=== PATIENT | male | born 1985 | race Caucasian/White ===

== ENCOUNTER 2021-01-01 20:45 | Emergency (ER) | payer SELFPAY ==
[~2021-01-01] VITALS: Ht 165.1 cm; Wt 63.6 kg
[~2021-01-01 20:45] MED LIST: NAPR-243 PO; TRM50T PO; VENL150C PO
[2021-01-01 20:50] VITALS: BP 148/89
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
== END 2021-01-01 21:10 | disposition left against medical advice (07) ==
LOC: EDUNIT# 20:45 → ER 20:47
DX: S00.83XA Contusion of other part of head, initial encounter (principal); S00.432A Contusion of left ear, initial encounter; Y04.0XXA Assault by unarmed brawl or fight, initial encounter
CPT/HCPCS: 99283

== ENCOUNTER 2021-07-12 01:27 | Emergency (ER) | payer SELFPAY ==
[~2021-07-12] VITALS: Ht 165 cm; Wt 63.6 kg
[2021-07-12] MEDS ORDERED: TETANUS,DIPTH,PERTUSS P/F (BOOSTRIX) 0.5 ML VIAL IM ONE (01:45)
[2021-07-12] MEDS ORDERED: ORPHENADRINE 60 MG/2 ML (NORFLEX) AMP (ED ONLY) IM ONE (01:45)
[2021-07-12] MEDS ORDERED: KETOROLAC 60 MG/2 ML VIAL IM ONE (01:45)
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
[2021-07-12] MEDS ORDERED: ONDANSETRON 4 MG (ZOFRAN) ORAL DISSOLVE TAB PO STA (01:55)
[2021-07-12] MEDS ORDERED: ONDANSETRON 4 MG (ZOFRAN) ORAL DISSOLVE TAB ONE (01:56)
[2021-07-12] MEDS ORDERED: HYDROcodone/APAP 7.5 MG/325 MG (LORTAB, LORCET PLUS) TABLET PO ONE (03:00)
[2021-07-12] MEDS ORDERED: CEPHALEXIN 250 MG (KEFLEX) CAP PO ONE (03:00)
[2021-07-12] MEDS ORDERED: CYCL10TA9 PO (03:06)
[2021-07-12] MEDS ORDERED: HYDR-3817 PO (03:06)
[2021-07-12] MEDS ORDERED: CEPH500T PO (03:06)
[2021-07-12 03:12] VITALS: BP 144/92
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
== END 2021-07-12 03:12 | disposition home or self-care (01) ==
LOC: EDUNIT# 01:27 → ER 01:29
DX: S02.32XA Fracture of orbital floor, left side, initial encounter for closed fracture (principal); S02.2XXA Fracture of nasal bones, initial encounter for closed fracture; S02.40EA Zygomatic fracture, right side, initial encounter for closed fracture; S05.11XA Contusion of eyeball and orbital tissues, right eye, initial encounter; H11.422 Conjunctival edema, left eye; R40.2410 Glasgow coma scale score 13-15, unspecified time; Z23 Encounter for immunization; Y04.8XXA Assault by other bodily force, initial encounter
CPT/HCPCS: 70450; 70486; 72125; 90715

== ENCOUNTER 2022-05-18 05:32 | Outpatient (CLI) | payer OTHER ==
[~2022-05-18] VITALS: Ht 180.3 cm; Wt 74.5 kg
[~2022-05-18 05:32] MED LIST changes: +CEPH500T PO; +CYCL10TA25 PO; +HYDR-3817 PO
[2022-05-22] MEDS ORDERED: ACET325C7 PO (09:30)
[2022-05-22] MEDS ORDERED: SERT50TA2 PO (09:30)
== END 2022-05-22 09:41 | disposition home or self-care (01) ==
LOC: PREOP 05:32
PROVIDERS: ATTEND Surgery
DX: Z01.818 Encounter for other preprocedural examination (principal)

== ENCOUNTER 2022-05-27 05:35 | Inpatient (IN) | payer SELFPAY ==
[~2022-05-27] VITALS: Ht 170.1 cm; Wt 81.8 kg
[~2022-05-27 05:35] MED LIST changes: +ACET325C7 PO; +SERT50TA2 PO
[2022-05-27] MEDS: LORazepam INJ 2 MG/ML (ATIVAN) VIAL IVP ONE (05:45)
[2022-05-27] MEDS ORDERED: ONDANSETRON 4 MG/2 ML (SDV) Z0FRAN IVP ONE (05:45)
[2022-05-27] MEDS ORDERED: NS IV 1000 ML 1,000 ML ONE (05:45)
[2022-05-27] MEDS ORDERED: NS IV 1000 ML 1,000 ML IV STA (05:45)
[2022-05-27 05:53] LABS: BASOPHILS # (AUTO) 0.1 10^3/uL (0.0-0.1); BASOPHILS % (AUTO) 0 % (0-10); EOSINOPHILS % (AUTO) 0 % (0-10); HEMATOCRIT 45 % (40-54); HEMOGLOBIN 16.2 g/dL (13.3-17.7); LYMPHOCYTES # (AUTO) 2.5 10^3/uL (1.0-4.0); LYMPHOCYTES % (AUTO) 9 % (12-44); MEAN CORPUSCULAR HEMOGLOBIN 31 pg (25-34); MEAN CORPUSCULAR HGB CONC 36 g/dL (32-36); MEAN CORPUSCULAR VOLUME 88 fL (80-99); MEAN PLATELET VOLUME 10.3 fL (9.0-12.2); MONOCYTES # (AUTO) 2.3 10^3/uL (0.0-1.0); MONOCYTES % (AUTO) 8 % (0-12); NEUTROPHILS % (AUTO) 83 % (42-75); PLATELET COUNT 356 10^3/uL (130-400); WHITE BLOOD COUNT 29.1 10^3/uL (4.3-11.0)
[2022-05-27 05:57] LABS: CHLORIDE 99 MMOL/L (98-107); POTASSIUM 4.1 MMOL/L (3.6-5.0); SODIUM 142 MMOL/L (135-145)
[2022-05-27 05:58] LABS: ALBUMIN 5.6 GM/DL (3.2-4.5)
[2022-05-27 05:59] LABS: CALCIUM 10.2 MG/DL (8.5-10.1)
[2022-05-27 06:00] LABS: GLUCOSE 116 MG/DL (70-105); TOTAL PROTEIN 8.8 GM/DL (6.4-8.2)
[2022-05-27 06:01] LABS: CARBON DIOXIDE 19 MMOL/L (21-32)
[2022-05-27 06:02] LABS: BILIRUBIN,TOTAL 1.7 MG/DL (0.1-1.0)
--- NOTE | 2022-05-27 06:02 | ED General ---
General Chief Complaint: Substance Abuse Stated Complaint: SUBSTANCE ABUSE Source of Information: Patient Exam Limitations: Intoxication (MAL FARMER MD) History of Present Illness Date Seen by Provider: May 27, 2022 Time Seen by Provider: 05:38 Initial Comments Patient here with report of bite to the lower right leg. States he was walking along the railroad tracks and went down of the water and was bit by a snake that was about 4 inches long that he believes was a water moccasin. His friend gave him some powdered substance that was white to take for the snakebite. He has had nausea and vomiting and is writhing in pain he states is from his dog bite. Also from his body. Does admit to using meth yesterday. States bite occurred at about midnight (5-1/2 hours ago). "Friend" brought him in and he could hardly walk and was moving about on the floor and vomiting into a bucket. Patient moves all extremities was able to transfer from wheelchair to bed. Very difficult to redirect due to anxiety. Does seem to be under the influence of drugs. History somewhat limited due to presentation and concerns for intoxication or toxicology. Timing/Duration: 4-6 Hours Severity: Moderate, Severe Associated Systoms: Nausea/Vomiting (MAL FARMER MD) Allergies and Home Medications Allergies Coded Allergies: No Known Drug Allergies (Unverified , 05/22/22) Patient Home Medication List Home Medication List Reviewed: Yes (MAL FARMER MD) Acetaminophen (Tylenol) 325 Mg Capsule, 325 MG PO UD, (Reported) Entered as Reported by: RIP SILVER on 05/22/22929 Last Action: Reviewed Sertraline HCl (Zoloft) 50 Mg Tablet, 50 MG PO HS, (Reported) Entered as Reported by: RIP SILVER on 05/22/22929 Last Action: Reviewed Discontinued Medications Cephalexin (Cephalexin) 500 Mg Tablet, 500 MG PO TID Discontinued Reason: No Longer Taking Prescribed by: WISAM PATIÑO on 07/12/21305 Cyclobenzaprine HCl (Cyclobenzaprine HCl) 10 Mg Tablet, 10 MG PO Q8H PRN for muscle spasm Discontinued Reason: No Longer Taking Prescribed by: WISAM PATIÑO on 07/12/21305 Hydrocodone/Acetaminophen (Hydrocodone-Acetamin 7.5-325) 1 Each Tablet, 1 EACH PO Q6H PRN for PAIN-SEVERE (8-10) Discontinued Reason: No Longer Taking Prescribed by: WISAM PATIÑO on 07/12/21 0306 Review of Systems Review of Systems Constitutional: see HPI; No chills, No fever; weakness Cardiovascular: No chest pain, No edema Gastrointestinal: No abdominal pain; nausea, vomiting Musculoskeletal: joint pain, muscle pain Skin: change in color, lesions (Multiple abrasions over the body and small reddened area to the lateral aspect of the right lower extremity just above the ankle.) ROS limited due to altered mental status and current medical condition (MAL FARMER MD) Past Bckwfah-Vgpmrr-Nwszkc Hx Patient Social History Tobacco Use?: Yes Substance use?: Yes Substance type: Methamphetamine (MAL FARMER MD) Seasonal Allergies Seasonal Allergies: No (MAL FARMER MD) Past Medical History Surgeries: No Respiratory: No Cardiac: No Neurological: Yes (UNKNOWN) Seizure Disorder Genitourinary: No Gastrointestinal: Yes (INGUINAL HERNIA) Musculoskeletal: No Endocrine: No Cancer: No Psychosocial: Yes ADD/ADHD, Bipolar, Schizophrenia, Violent Behavior, Depression Integumentary: No Blood Disorders: Yes (HEPATITIS?) Adverse Reaction/Blood Tranf: No (MAL FARMER MD) Family Medical History Reviewed Nursing Family Hx (MAL FARMER MD) No Pertinent Family Hx (MAL FARMER MD) Physical Exam Vital Signs Vital Signs - First Documented 05/27/22 05:51 Temp 36.8 Pulse 115 Resp 24 B/P (MAP) 163/108 (126) Pulse Ox 99 O2 Delivery Room Air (WISAM PATIÑO MD) Vital Signs Capillary Refill : (MAL FARMER MD) Height, Weight, BMI Height: '" Weight: 150lbs. oz. [id number]; 22.91 BMI Method:Stated General Appearance: Anxious, Moderate Distress HEENT: PERRL/EOMI, Pharyngeal Erythema Neck: Non Tender, Supple Respiratory: Lungs Clear, Normal Breath Sounds Cardiovascular: No Murmur, Tachycardia Gastrointestinal: Non Tender, Soft Back: Normal Inspection, No CVA Tenderness, No Vertebral Tenderness Extremity: Normal Range of Motion Neurologic/Psychiatric: Alert, Other (Difficult time with staying still and moving all extremities) Skin: Warm/Dry, Other (Multiple abrasions over all surfaces of the exposed body including trunk and extremities. Does have 2 x 3 cm area of redness to the area just above the right ankle on the lateral aspect of the leg. No fang valdes noted and no punctures in the area.) (MAL FARMER MD) Progress/Results/Core Measures Suspected Sepsis SIRS Temperature: Pulse: Respiratory Rate: Laboratory Tests 05/27/22 05:42: White Blood Count 29.1H Blood Pressure / Mean: Laboratory Tests 05/27/22 05:42: Creatinine 2.80H, Platelet Count 356, Total Bilirubin 1.7H (MAL FARMER MD) Results/Orders Lab Results Laboratory Tests Test 05/27/22 05:42 Range/Units White Blood Count 29.1 H 4.3-11.0 10^3/uL Red Blood Count 5.17 4.30-5.52 10^6/uL Hemoglobin 16.2 13.3-17.7 g/dL Hematocrit 45 40-54 % Mean Corpuscular Volume 88 80-99 fL Mean Corpuscular Hemoglobin 31 25-34 pg Mean Corpuscular Hemoglobin Concent 36 32-36 g/dL Red Cell Distribution Width 11.9 10.0-14.5 % Platelet Count 356 130-400 10^3/uL Mean Platelet Volume 10.3 9.0-12.2 fL Immature Granulocyte % (Auto) 1 % Neutrophils (%) (Auto) 83 H 42-75 % Lymphocytes (%) (Auto) 9 L 12-44 % Monocytes (%) (Auto) 8 0-12 % Eosinophils (%) (Auto) 0 0-10 % Basophils (%) (Auto) 0 0-10 % Neutrophils # (Auto) 24.0 H 1.8-7.8 10^3/uL Lymphocytes # (Auto) 2.5 1.0-4.0 10^3/uL Monocytes # (Auto) 2.3 H 0.0-1.0 10^3/uL Eosinophils # (Auto) 0.0 0.0-0.3 10^3/uL Basophils # (Auto) 0.1 0.0-0.1 10^3/uL Immature Granulocyte # (Auto) 0.2 H 0.0-0.1 10^3/uL Neutrophils % (Manual) 85 % Lymphocytes % (Manual) 3 % Monocytes % (Manual) 7 % Basophils % (Manual) 1 % Band Neutrophils 1 % Atypical Lymphocytes 1 % Reactive Lymphocytes 2 % Smudge Cells MOD Blood Morphology Comment NORMAL Prothrombin Time 14.1 12.2-14.7 SEC INR Comment 1.1 0.8-1.4 Activated Partial Thromboplast Time 27 24-35 SEC Fibrinogen 520 H 221-496 MG/DL D-Dimer 0.09 0.00-0.49 UG/ML Sodium Level 142 135-145 MMOL/L Potassium Level 4.1 3.6-5.0 MMOL/L Chloride Level 99 98-107 MMOL/L Carbon Dioxide Level 19 L 21-32 MMOL/L Anion Gap 24 H 5-14 MMOL/L Blood Urea Nitrogen 66 H 7-18 MG/DL Creatinine 2.80 H 0.60-1.30 MG/DL Estimat Glomerular Filtration Rate 29 BUN/Creatinine Ratio 24 Glucose Level 116 H 70-105 MG/DL Calcium Level 10.2 H 8.5-10.1 MG/DL Corrected Calcium 8.5-10.1 MG/DL Magnesium Level 3.1 H 1.6-2.4 MG/DL Total Bilirubin 1.7 H 0.1-1.0 MG/DL Aspartate Amino Transf (AST/SGOT) 286 H 5-34 U/L Alanine Aminotransferase (ALT/SGPT) 118 H 0-55 U/L Alkaline Phosphatase 73 40-136 U/L Total Creatine Kinase 16348 H 30-200 U/L Total Protein 8.8 H 6.4-8.2 GM/DL Albumin 5.6 H 3.2-4.5 GM/DL Salicylates Level < 5.0 L 5.0-20.0 MG/DL Acetaminophen Level < 10 L 10-30 UG/ML Serum Alcohol < 10 <10 MG/DL (WISAM PATIÑO MD) My Orders Orders - WISAM PATIÑO MD Ns Iv 1000 Ml (Sodium Chloride 0.9%) (05/27/22 06:45) (WISAM PATIÑO MD) Medications Given in ED (WISAM PATIÑO MD) Vital Signs/I&O 05/27/22 05:51 Temp 36.8 Pulse 115 Resp 24 B/P (MAP) 163/108 (126) Pulse Ox 99 O2 Delivery Room Air (WISAM PATIÑO MD) Vital Signs/I&O Capillary Refill : (MAL FARMER MD) Progress Note : Progress Note Seen and evaluated. While this is unlikely to be be an actual snakebite, we will check appropriate labs including CBC, CMP, D-dimer and fibrinogen. Wound has been marked. Ativan 2 mg IV for anxiety and agitation. Normal saline 1 L bolus ordered. We will get EKG. 0605: Care transferred to Dr. Patiño pending all labs. Monitor patient. (MAL FARMER MD) Progress Note : Time: 07:15 Progress Note Patient care was assumed at shift change from Dr. Farmer. Patient has received a total of 1 L of normal saline and 2 mg of Ativan IV. He is resting comfortably. Heart rate is 93. Oxygen saturations 99% on room air. Respirations are even and unlabored. Blood pressure is 140 systolic. He does have evidence of acute renal failure with likely rhabdomyolysis. His white count is quite elevated. He has not provided a urine specimen yet but did admit to methamphetamine yesterday. Will assess urinalysis once it is available for blood. Liver functions are elevated CK is 12,000. Will admit for further fluid resuscitation to Hospitalist/Dr Leyva (WISAM PATIÑO MD) ECG Initial ECG Impression Date: May 27, 2022 Initial ECG Impression Time: 06:30 Initial ECG Rate: 96 Initial ECG Rhythm: Normal Sinus Initial ECG Intervals: Normal Initial ECG Impression: Normal (WISAM PATIÑO MD) Departure Communication (Admissions) Time/Spoke to Admitting Phy: 07:[address] Leyva who accepts patient for admission (WISAM PATIÑO MD) Impression Primary Impression: Methamphetamine intoxication Additional Impressions: Rhabdomyolysis Qualified Codes: M62.82 - Rhabdomyolysis Acute renal failure Qualified Codes: N17.9 - Acute kidney failure, unspecified Abrasions of multiple sites Disposition: 09 ADMITTED INPATIENT Condition: Stable Admissions Decision to Admit Reason: Admit from ER (General) Decision to Admit/Date: May 27, 2022 Time/Decision to Admit Time: 07:15 (WISAM PATIÑO MD) Departure-Patient Inst. Referrals: NO,LOCAL PHYSICIAN (PCP/Family) Primary Care Physician Patient Instructions: ALCOHOL AND SUBSTANCE ABUSE MAL FARMER MD May 27, 2022 06:02 WISAM PATIÑO MD May 27, 2022 07:11
[2022-05-27 06:04] LABS: ALKALINE PHOSPHATASE 73 U/L (40-136); GFR ESTIMATED 29
[2022-05-27 06:05] LABS: BUN/CREATININE RATIO 24
[2022-05-27 06:07] LABS: ALANINE AMINOTRANSFERASE 118 U/L (0-55); MAGNESIUM 3.1 MG/DL (1.6-2.4); SALICYLATE < 5.0 MG/DL (5.0-20.0)
[2022-05-27 06:12] LABS: ACETAMINOPHEN < 10 UG/ML (10-30)
[2022-05-27] MEDS ORDERED: LORazepam INJ 2 MG/ML (ATIVAN) VIAL IVP ONE (06:15)
[2022-05-27 06:25] LABS: CREATINE KINASE 12855 U/L (30-200)
[2022-05-27 06:27] LABS: ATYPICAL LYMPHOCYTES 1 %; BAND NEUTROPHILS 1 %; BASOPHILS % (MANUAL) 1 %; LYMPHOCYTES % (MANUAL) 3 %; MONOCYTES % (MANUAL) 7 %; NEUTROPHILS % (MANUAL) 85 %; RBC MORPH NORMAL; REACTIVE LYMPHOCYTES 2 %
[2022-05-27 06:29] LABS: FIBRIN DEGRADATION PRODUCTS 0.09 UG/ML (0.00-0.49); INR 1.1 (0.8-1.4); PROTHROMBIN TIME PATIENT 14.1 SEC (12.2-14.7)
[2022-05-27] MEDS: NS IV 1000 ML 1,000 ML IV SCH ×2 (06:53→14:08)
[2022-05-27] MEDS ORDERED: LORazepam INJ 2 MG/ML (ATIVAN) VIAL IV PRN ×2 (09:00)
[2022-05-27] MEDS ORDERED: LORazepam 1 MG (ATIVAN) TAB PO PRN ×2 (09:00)
[2022-05-27] MEDS ORDERED: ONDANSETRON 4 MG/2 ML (SDV) Z0FRAN IV PRN (09:00)
[2022-05-27 11:35] VITALS: BP 125/81
--- NOTE | 2022-05-27 12:16 | History & Physical-Hospitalist ---
History of Present Illness HPI/Chief Complaint Patient is a 36-year-old male who presented to the emergency department due to reported snakebite. He had first reported it was a snake that was roughly 4 inches long and he thought with water moccasin. He went to a friend who gave him a white powdered substance to take and after that he had nausea and vomiting. Apparently at that time he reported that he had worsening pain from a dog bite to the emergency department. He states the "bite" occurred around midnight but also admitted to doing meth yesterday and appeared to be under the influence of drugs to the emergency department. He was found to have an ESTEFANY with an elevated CK and was admitted for IV fluids. On my exam he opened his eyes groaned and said "I am not going to do it." and rolled over thus history is obtained from the records. Nurse reports he was mooing when brought to the room from the emergency department. Exam Limitations: no limitations Date Seen 05/27/22 Time Seen by a Provider: 11:30 Attending Physician No,Local Physician PCP Admitting Physician: Geraldo Leyva MD Attending Physician: Geraldo Leyva MD Referring Physician Date of Admission May 27, 2022 at 07:27 Home Medications & Allergies Home Medications Reviewed patient Home Medication Reconciliation performed by pharmacy medication reconciliations photonics technician and/or nursing. Patients Allergies have been reviewed. Allergies Allergies Coded Allergies No Known Drug Allergies (Unverified05/22/22) Past Wnunatf-Wkcurn-Oupmcz Hx Patient Social History Tobacco Use?: Yes Tobacco type used: Cigarettes Smoking Status: Current Everyday Smoker Smokeless Tobacco Frequency: Unknown if Ever Used Use of E-Cig and/or Vaping dev: Unable to obtain Substance use?: Yes Substance type: Amphetamines, Methamphetamine Substance frequency: Daily Alcohol Use?: Unable to obtain Alcohol type: Beer, Hard Liquor Alcohol Frequency: Couple times a week Pt feels they are or have been: Unable to obtain Immunizations Up To Date Tetanus Booster (TDap): Less Than 5 Years Hepatitis A: No Hepatitis B: No Seasonal Allergies Seasonal Allergies: No Current Status Advance Directives: Unable to obtain Communicates: Unable To Communicate, Verbally Primary Language: Turkish Preferred Spoken Language: Turkish Is interpretation needed?: No Implanted or Applied Medical D: None Past Medical History Seizure Disorder ADD/ADHD, Bipolar, Schizophrenia, Violent Behavior, Depression Blood Disorders: Yes (HEPATITIS?) Adverse Reaction/Blood Tranf: No Family Medical History Reviewed Nursing Family Hx No Pertinent Family Hx Review of Systems ROS-Unable to Obtain: unable to obtain Constitutional: see HPI Physical Exam Physical Exam Vital Signs Vital Signs - First Documented 05/27/22 05:51 Temp 36.8 Pulse 115 Resp 24 B/P (MAP) 163/108 (126) Pulse Ox 99 O2 Delivery Room Air Capillary Refill : Less Than 3 Seconds Height, Weight, BMI Height: '" Weight: 150lbs. oz. 68.846929ey; 28.27 BMI Method:Stated General Appearance: No Apparent Distress, WD/WN, Other (sleeping soundedly ) HEENT: PERRL/EOMI, Moist Mucous Membranes; No Scleral Icterus (L), No Scleral Icterus (R) Neck: Normal Inspection, Supple Respiratory: Lungs Clear, No Accessory Muscle Use, No Respiratory Distress Cardiovascular: Regular Rate, Rhythm, No Murmur Gastrointestinal: Normal Bowel Sounds, Non Tender, Soft Extremity: Normal Capillary Refill, No Calf Tenderness, No Pedal Edema, Other (area of erythema noted on lower leg near ankle, skin marking noted, no evidence of bite vanessa ) Neurologic/Psychiatric: Alert (arouses to verbal stimuli but does not particip ate further in exam); No Facial Droop Skin: Normal Color, Warm/Dry, Tattoos/Piercings Results Results/Procedures Labs Patient resulted labs reviewed. Assessment/Plan Admission Diagnosis Rhabdomyolysis Admission Status: Inpatient Order (span 2 midnights) Reason for Inpatient Admission: see below Assessment and Plan Rhabdomyolysis ESTEFANY Methamphetamine abuse Continue IVF trend CK Monitor UOP Refused catheter Leg wound Does not appear consistent with snake or dog bite Will get TDAP when more awake Reported to ER nurse later he may just just scratched it on a railroad track Per ER not a candidate for antivenom Patient elected to leave AMA 05/27 afternoon Diagnosis/Problems Diagnosis/Problems (1) Rhabdomyolysis Status: Acute Qualifiers: Rhabdomyolysis type: non-traumatic Qualified Codes: M62.82 - Rhabdomyolysis (2) Abrasions of multiple sites Status: Acute (3) Methamphetamine intoxication Status: Acute (4) Acute renal failure Status: Acute Qualifiers: Acute renal failure type: unspecified Qualified Codes: N17.9 - Acute kidney failure, unspecified GERALDO LEYVA MD May 27, 2022 12:16
[2022-05-27] MEDS ORDERED: TETANUS,DIPTH,PERTUSS P/F (BOOSTRIX) 0.5 ML VIAL IM ONE (13:00)
[2022-05-27 13:41] LABS: BILIRUBIN,URINE NEGATIVE (NEGATIVE); CLARITY,URINE CLEAR; COLOR,URINE YELLOW; GLUCOSE, URINE (UA) NEGATIVE (NEGATIVE); KETONES,URINE 1+ (NEGATIVE); LEUKOCYTE ESTERASE ,URINE NEGATIVE (NEGATIVE); NITRITE,URINE NEGATIVE (NEGATIVE); PROTEIN,URINE 1+ (NEGATIVE)
[2022-05-27 13:48] LABS: BACTERIA,URINE NEGATIVE /HPF
[2022-05-27 13:54] LABS: AMPHETAMINE SCREEN, URINE POSITIVE (NEGATIVE); BARBITURATE SCREEN URINE NEGATIVE (NEGATIVE); BENZODIAZEPINES SCREEN URINE POSITIVE (NEGATIVE); CANNABINOID SCREEN, URINE NEGATIVE (NEGATIVE); COCAINE SCREEN URINE NEGATIVE (NEGATIVE); METHADONE STAT NEGATIVE (NEGATIVE); OPIATE SCREEN URINE NEGATIVE (NEGATIVE); OXYCODONE STAT NEGATIVE (NEGATIVE); PROPOXYPHENE STAT NEGATIVE (NEGATIVE); TRICYCLIC ANTIDEPRESSANTS SCRE NEGATIVE (NEGATIVE)
[2022-05-27 16:00] VITALS: BP 125/57
[2022-05-27] MEDS ORDERED: ACETAMINOPHEN 500 MG TAB (TYLENOL) PO PRN (16:30)
== END 2022-05-27 18:28 | disposition left against medical advice (07) | DRG 683 ==
LOC: EDUNIT# 05:35 → ER 05:38 → 4TH 07:27
PROVIDERS: ADMIT Family Medicine; ATTEND Family Medicine
DX: N17.9 Acute kidney failure, unspecified (principal); M62.82 Rhabdomyolysis; F15.129 Other stimulant abuse with intoxication, unspecified; G40.909 Epilepsy, unspecified, not intractable, without status epilepticus; F90.9 Attention-deficit hyperactivity disorder, unspecified type; F31.9 Bipolar disorder, unspecified; F20.9 Schizophrenia, unspecified; F17.210 Nicotine dependence, cigarettes, uncomplicated; S81.859A Open bite, unspecified lower leg, initial encounter
CPT/HCPCS: 36415; 80053; 80306; 80320; 80329; 81000; 82550; 83735; 85007; 85027; 85379; 85384; 85610; 85730; 90715; 93005

== ENCOUNTER 2022-05-27 22:35 | Observation (INO) | payer SELFPAY ==
[~2022-05-27] VITALS: Ht 170.1 cm; Wt 68.1 kg
--- NOTE | 2022-05-27 23:09 | ED General ---
General Source of Information: Patient Exam Limitations: No Limitations History of Present Illness Date Seen by Provider: May 27, 2022 Time Seen by Provider: 23:00 Initial Comments Here after leaving a.m. today for rhabdomyolysis. 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 He has done that and has returned. He was admitted earlier today for rhabdomyolysis and concerns of snakebite. It appears overall he has used significant amount of methamphetamine and has had subsequent renal failure and rhabdomyolysis. He denies pain. Denies using methamphetamine tonight but does admit to using quite a bit over the past several days. Complains of being thirsty. Does have persistent muscle movement overall consistent with methamphetamine abuse. Timing/Duration: 1-2 Days Severity: Moderate Associated Systoms: No Nausea/Vomiting, No Shortness of Air, No Weakness Allergies and Home Medications Allergies Coded Allergies: No Known Drug Allergies (Unverified , 05/22/22) Patient Home Medication List Home Medication List Reviewed: Yes Acetaminophen (Tylenol) 325 Mg Capsule, 325 MG PO UD, (Reported) Entered as Reported by: RIP SILVER on 05/22/22929 Sertraline HCl (Zoloft) 50 Mg Tablet, 50 MG PO HS, (Reported) Entered as Reported by: RIP SILVER on 05/22/22929 Discontinued Medications Cephalexin (Cephalexin) 500 Mg Tablet, 500 MG PO TID Discontinued Reason: No Longer Taking Prescribed by: WISAM PATIÑO on 07/12/21305 Cyclobenzaprine HCl (Cyclobenzaprine HCl) 10 Mg Tablet, 10 MG PO Q8H PRN for muscle spasm Discontinued Reason: No Longer Taking Prescribed by: WISAM PATIÑO on 07/12/21305 Hydrocodone/Acetaminophen (Hydrocodone-Acetamin 7.5-325) 1 Each Tablet, 1 EACH PO Q6H PRN for PAIN-SEVERE (8-10) Discontinued Reason: No Longer Taking Prescribed by: WISAM PATIÑO on 07/12/21305 Review of Systems Review of Systems Constitutional: see HPI; No chills, No fever EENTM: no symptoms reported Respiratory: No cough, No short of breath Cardiovascular: No chest pain, No edema Gastrointestinal: No nausea, No vomiting Genitourinary: no symptoms reported Musculoskeletal: muscle twitching; No muscle weakness Skin: change in color, lesions (Multiple abrasions) Psychiatric/Neurological: Denies Headache, Denies Weakness All Other Systems Reviewed Negative Unless Noted: Yes Past Nleugyy-Vemnjl-Jblndj Hx Patient Social History Tobacco Use?: Yes Substance use?: Yes Substance type: Methamphetamine Alcohol Use?: No Seasonal Allergies Seasonal Allergies: No Past Medical History Surgeries: No Respiratory: No Cardiac: No Neurological: Yes (UNKNOWN) Seizure Disorder Genitourinary: No Gastrointestinal: Yes (INGUINAL HERNIA) Musculoskeletal: No Endocrine: No Cancer: No Psychosocial: Yes ADD/ADHD, Bipolar, Schizophrenia, Violent Behavior, Depression Integumentary: No Blood Disorders: Yes (HEPATITIS?) Adverse Reaction/Blood Tranf: No Family Medical History Reviewed Nursing Family Hx No Pertinent Family Hx Physical Exam Vital Signs Vital Signs - First Documented 05/27/22 22:50 Temp 36.2 Pulse 110 Resp 18 B/P (MAP) 147/110 (122) Pulse Ox 98 Capillary Refill : Height, Weight, BMI Height: '" Weight: 150lbs. oz. 68.962484mu; 28.27 BMI Method:Stated General Appearance: Anxious, Thin HEENT: PERRL/EOMI, Pharynx Normal Neck: Non Tender, Supple Respiratory: Lungs Clear, Normal Breath Sounds Cardiovascular: No Murmur, Tachycardia Gastrointestinal: Non Tender, Soft Back: Normal Inspection, No CVA Tenderness, No Vertebral Tenderness Extremity: Normal Range of Motion, Non Tender, Other (Has a very hard time sitting still and there is quite a bit.) Neurologic/Psychiatric: Alert, Oriented x3 Skin: Warm/Dry, Other (Has superficial abrasions over multiple areas of the body.) Progress/Results/Core Measures Suspected Sepsis SIRS Temperature: Pulse: Respiratory Rate: Laboratory Tests 05/27/22 23:10: White Blood Count 20.0H Blood Pressure / Mean: Laboratory Tests 05/27/22 23:10: Creatinine 1.27, Platelet Count 242, Total Bilirubin 1.2H Results/Orders Lab Results Laboratory Tests Test 05/27/22 23:10 Range/Units White Blood Count 20.0 H 4.3-11.0 10^3/uL Red Blood Count 4.04 L 4.30-5.52 10^6/uL Hemoglobin 12.9 #L 13.3-17.7 g/dL Hematocrit 35 L 40-54 % Mean Corpuscular Volume 87 80-99 fL Mean Corpuscular Hemoglobin 32 25-34 pg Mean Corpuscular Hemoglobin Concent 37 H 32-36 g/dL Red Cell Distribution Width 11.9 10.0-14.5 % Platelet Count 242 130-400 10^3/uL Mean Platelet Volume 9.8 9.0-12.2 fL Immature Granulocyte % (Auto) 0 % Neutrophils (%) (Auto) 81 H 42-75 % Lymphocytes (%) (Auto) 10 L 12-44 % Monocytes (%) (Auto) 8 0-12 % Eosinophils (%) (Auto) 0 0-10 % Basophils (%) (Auto) 0 0-10 % Neutrophils # (Auto) 16.1 H 1.8-7.8 10^3/uL Lymphocytes # (Auto) 2.0 1.0-4.0 10^3/uL Monocytes # (Auto) 1.6 H 0.0-1.0 10^3/uL Eosinophils # (Auto) 0.1 0.0-0.3 10^3/uL Basophils # (Auto) 0.0 0.0-0.1 10^3/uL Immature Granulocyte # (Auto) 0.1 0.0-0.1 10^3/uL Neutrophils % (Manual) 83 % Lymphocytes % (Manual) 10 % Monocytes % (Manual) 5 % Eosinophils % (Manual) 1 % Atypical Lymphocytes 1 % Microcytosis SLIGHT Sodium Level 141 135-145 MMOL/L Potassium Level 3.9 3.6-5.0 MMOL/L Chloride Level 106 98-107 MMOL/L Carbon Dioxide Level 21 21-32 MMOL/L Anion Gap 14 5-14 MMOL/L Blood Urea Nitrogen 48 H 7-18 MG/DL Creatinine 1.27 0.60-1.30 MG/DL Estimat Glomerular Filtration Rate 75 BUN/Creatinine Ratio 38 Glucose Level 89 70-105 MG/DL Calcium Level 8.9 8.5-10.1 MG/DL Corrected Calcium 8.6 8.5-10.1 MG/DL Total Bilirubin 1.2 H 0.1-1.0 MG/DL Aspartate Amino Transf (AST/SGOT) 278 H 5-34 U/L Alanine Aminotransferase (ALT/SGPT) 126 H 0-55 U/L Alkaline Phosphatase 61 40-136 U/L Total Creatine Kinase 96043 H 30-200 U/L Total Protein 6.8 6.4-8.2 GM/DL Albumin 4.4 3.2-4.5 GM/DL My Orders Orders - MAL FARMER MD Cbc With Automated Diff (05/27/22 23:06) Comprehensive Metabolic Panel (05/27/22 23:06) Creatine Kinase (05/27/22 23:06) Ed Iv/Invasive Line Start (05/27/22 23:06) Ns Iv 1000 Ml (Sodium Chloride 0.9%) (05/27/22 23:15) Manual Differential (05/27/22 23:10) Medications Given in ED Current Medications Medications Dose Ordered Sig/Sae Route Start Time Stop Time Status Last Admin Dose Admin Sodium Chloride 1,000 ml @ 0 mls/hr Q0M ONCE IV 05/27/22 23:15 05/27/22 23:16 DC 05/27/22 23:37 0 MLS/HR Vital Signs/I&O 05/27/22 22:50 Temp 36.2 Pulse 110 Resp 18 B/P (MAP) 147/110 (122) Pulse Ox 98 Capillary Refill : Progress Note : Progress Note Seen and evaluated. IV, labs, normal saline 1 L bolus ordered. Monitor patient. 0125: I did discuss the case with Dr. Leyva. Patient still in rhabdomyolysis with total CK 11,000. Serum creatinine is improved. Potassium normal. White count still elevated. We will admit, observation status and Dr. Leyva who is excepted that plan. Patient agrees. We will continue IV hydration. Patient reports that he will stay if needed. Departure Communication (Admissions) Time/Spoke to Admitting Phy: 01:25 Impression Primary Impression: Rhabdomyolysis Qualified Codes: M62.82 - Rhabdomyolysis Additional Impression: Methamphetamine intoxication Disposition: ADMITTED INPATIENT Condition: Stable Admissions Decision to Admit Reason: Admit from ER (General) Decision to Admit/Date: May 28, 2022 Time/Decision to Admit Time: 01:25 Departure-Patient Inst. Referrals: NO,LOCAL PHYSICIAN (PCP/Family) Primary Care Physician MAL FARMER MD May 27, 2022 23:09
[2022-05-27] MEDS ORDERED: NS IV 1000 ML 1,000 ML IV ONE (23:15)
[2022-05-27 23:17] LABS: BASOPHILS % (AUTO) 0 % (0-10); EOSINOPHILS # (AUTO) 0.1 10^3/uL (0.0-0.3); EOSINOPHILS % (AUTO) 0 % (0-10); HEMATOCRIT 35 % (40-54); HEMOGLOBIN 12.9 g/dL (13.3-17.7); LYMPHOCYTES % (AUTO) 10 % (12-44); MEAN CORPUSCULAR HEMOGLOBIN 32 pg (25-34); MEAN CORPUSCULAR HGB CONC 37 g/dL (32-36); MEAN CORPUSCULAR VOLUME 87 fL (80-99); MEAN PLATELET VOLUME 9.8 fL (9.0-12.2); MONOCYTES # (AUTO) 1.6 10^3/uL (0.0-1.0); MONOCYTES % (AUTO) 8 % (0-12); NEUTROPHILS # (AUTO) 16.1 10^3/uL (1.8-7.8); NEUTROPHILS % (AUTO) 81 % (42-75); PLATELET COUNT 242 10^3/uL (130-400)
[2022-05-27 23:29] LABS: ALBUMIN 4.4 GM/DL (3.2-4.5); POTASSIUM 3.9 MMOL/L (3.6-5.0)
[2022-05-27 23:31] LABS: CALCIUM 8.9 MG/DL (8.5-10.1)
[2022-05-27 23:32] LABS: TOTAL PROTEIN 6.8 GM/DL (6.4-8.2)
[2022-05-27 23:34] LABS: BILIRUBIN,TOTAL 1.2 MG/DL (0.1-1.0)
[2022-05-27 23:35] LABS: CREATININE SERUM 1.27 MG/DL (0.60-1.30)
[2022-05-28 00:25] LABS: ATYPICAL LYMPHOCYTES 1 %; EOSINOPHILS % (MANUAL) 1 %; LYMPHOCYTES % (MANUAL) 10 %; MICROCYTOSIS SLIGHT; MONOCYTES % (MANUAL) 5 %; NEUTROPHILS % (MANUAL) 83 %
[2022-05-28] MEDS ORDERED: NS IV 1000 ML 1,000 ML ONE (02:24)
[2022-05-28 02:31] VITALS: BP 160/88
[2022-05-28] MEDS ORDERED: NS IV 1000 ML 1,000 ML IV SCH (03:00)
[2022-05-28 03:49] VITALS: BP 144/66
--- NOTE | 2022-05-28 06:56 | Short Stay Summary-Hospitalist ---
History of Present Illness HPI/Chief Complaint I did not see patient. He elected to leave AMA prior to being seen. This note is for documentation purposes only. Date Seen 05/28/22 Time Seen by a Provider: 08:17 (Did not actually see patient, this is mandator field. left AMA prior to being seen) Attending Physician No,Local Physician PCP Admitting Physician: Geraldo Leyva MD Attending Physician: Geraldo Leyva MD Referring Physician Date of Admission May 28, 2022 at 01:26 Home Medications & Allergies Home Medications Reviewed patient Home Medication Reconciliation performed by pharmacy medication reconciliations injection mold tooling technician and/or nursing. Patients Allergies have been reviewed. Allergies Allergies Coded Allergies No Known Drug Allergies (Unverified05/22/22) Past Deivnby-Vtaenw-Zmdsev Hx Patient Social History Tobacco Use?: Yes Tobacco type used: Cigarettes Smoking Status: Current Everyday Smoker Substance use?: Yes Substance type: Methamphetamine Substance frequency: Daily Alcohol Use?: Yes Alcohol type: Hard Liquor Alcohol Frequency: Once in a while Pt feels they are or have been: No Immunizations Up To Date Tetanus Booster (TDap): Less Than 5 Years Hepatitis A: No Hepatitis B: No Seasonal Allergies Seasonal Allergies: No Current Status Advance Directives: No Communicates: Verbally Primary Language: Urdu Preferred Spoken Language: Urdu Is interpretation needed?: No Implanted or Applied Medical D: None Past Medical History Seizure Disorder ADD/ADHD, Bipolar, Schizophrenia, Violent Behavior, Depression Blood Disorders: Yes (HEPATITIS?) Adverse Reaction/Blood Tranf: No Family Medical History Reviewed Nursing Family Hx No Pertinent Family Hx Review of Systems Constitutional: see HPI Physical Exam Physical Exam Vital Signs Vital Signs - First Documented 05/27/22 05/28/22 22:50 02:31 Temp 36.2 Pulse 110 Resp 18 B/P (MAP) 147/110 (122) Pulse Ox 98 O2 Delivery Room Air Capillary Refill : Height, Weight, BMI Height: '" Weight: 150lbs. oz. 68.990263vv; 23.53 BMI Method:Stated General Appearance: Other (Not seen. Left AMA prior to being seen. This is a mandatory field on this note.) Respiratory: Normal Breath Sounds Cardiovascular: Tachycardia Extremity: Other (Has a very hard time sitting still and there is quite a bit.) Results Results/Procedures Labs Patient resulted labs reviewed. Short Stay Diagnosis Discharge Diagnosis-Short Stay Admission Diagnosis Rhabdomyolysis Final Discharge Diagnosis Rhabdomyolysis Conclusion Plan Rhabdomyolysis Patient admitted due to rhabdomyolysis after leaving AMA 10 hours earlier today. Shortly after arrival to the floor he elected to leave AMA again. I did not see patient. This note is for documentation purposes only. GERALDO LEYVA MD May 28, 2022 06:55
== END 2022-05-28 03:50 | disposition left against medical advice (07) ==
LOC: EDUNIT# 22:35 → ER 22:37 → 4TH 22:38 → UNDOADMOB 05-28 01:26 → UNDODISOB 05-28 03:55
PROVIDERS: ADMIT Family Medicine; ATTEND Family Medicine
DX: M62.82 Rhabdomyolysis (principal); F15.129 Other stimulant abuse with intoxication, unspecified; Z53.21 Procedure and treatment not carried out due to patient leaving prior to being seen by health care provider
CPT/HCPCS: 80053; 82550; 85007; 85025; 85027; 96360; 99284; G0378; 36415

== ENCOUNTER 2022-08-14 21:20 | Emergency (ER) | payer OTHER ==
[~2022-08-14] VITALS: Ht 172.7 cm; Wt 74.1 kg
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
[2022-08-14 23:19] LABS: BILIRUBIN,URINE NEGATIVE (NEGATIVE); CLARITY,URINE CLEAR; COLOR,URINE YELLOW; GLUCOSE, URINE (UA) NEGATIVE (NEGATIVE); KETONES,URINE NEGATIVE (NEGATIVE); LEUKOCYTE ESTERASE ,URINE NEGATIVE (NEGATIVE); NITRITE,URINE NEGATIVE (NEGATIVE); PROTEIN,URINE NEGATIVE (NEGATIVE)
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
[2022-08-14 23:25] LABS: BACTERIA,URINE NEGATIVE /HPF
[2022-08-14 23:34] LABS: AMPHETAMINE SCREEN, URINE NEGATIVE (NEGATIVE); BARBITURATE SCREEN URINE NEGATIVE (NEGATIVE); BENZODIAZEPINES SCREEN URINE NEGATIVE (NEGATIVE); CANNABINOID SCREEN, URINE NEGATIVE (NEGATIVE); COCAINE SCREEN URINE NEGATIVE (NEGATIVE); METHADONE STAT NEGATIVE (NEGATIVE); OPIATE SCREEN URINE NEGATIVE (NEGATIVE); OXYCODONE STAT NEGATIVE (NEGATIVE); PROPOXYPHENE STAT NEGATIVE (NEGATIVE); TRICYCLIC ANTIDEPRESSANTS SCRE NEGATIVE (NEGATIVE)
[2022-08-14 23:35] LABS: BASOPHILS # (AUTO) 0.1 10^3/uL (0.0-0.1); BASOPHILS % (AUTO) 0 % (0-10); EOSINOPHILS # (AUTO) 0.1 10^3/uL (0.0-0.3); EOSINOPHILS % (AUTO) 1 % (0-10); HEMATOCRIT 40 % (40-54); HEMOGLOBIN 14.1 g/dL (13.3-17.7); LYMPHOCYTES # (AUTO) 2.5 10^3/uL (1.0-4.0); LYMPHOCYTES % (AUTO) 13 % (12-44); MEAN CORPUSCULAR HEMOGLOBIN 32 pg (25-34); MEAN CORPUSCULAR HGB CONC 35 g/dL (32-36); MEAN CORPUSCULAR VOLUME 89 fL (80-99); MEAN PLATELET VOLUME 10.3 fL (9.0-12.2); MONOCYTES # (AUTO) 1.1 10^3/uL (0.0-1.0); MONOCYTES % (AUTO) 5 % (0-12); NEUTROPHILS % (AUTO) 80 % (42-75); PLATELET COUNT 241 10^3/uL (130-400); WHITE BLOOD COUNT 19.8 10^3/uL (4.3-11.0)
[2022-08-14 23:43] LABS: ALBUMIN 4.2 GM/DL (3.2-4.5); CHLORIDE 103 MMOL/L (98-107); POTASSIUM 4.7 MMOL/L (3.6-5.0); SODIUM 139 MMOL/L (135-145)
[2022-08-14] MEDS ORDERED: HOLD METFORMIN - RECEIVED CONTRAST 20 ML VIAL IV SCH (23:45)
[2022-08-14] MEDS ORDERED: IOHEXOL 350 MG/ML 100 ML (OMNIPAQUE 350) VIAL IV ONE (23:45)
[2022-08-14] MEDS ORDERED: NS 100 ML (IVPB) BAG IV ONE (23:45)
[2022-08-14 23:46] LABS: GLUCOSE 95 MG/DL (70-105); TOTAL PROTEIN 6.7 GM/DL (6.4-8.2)
[2022-08-14 23:47] LABS: BILIRUBIN,TOTAL 0.3 MG/DL (0.1-1.0); CARBON DIOXIDE 22 MMOL/L (21-32)
[2022-08-14 23:49] LABS: ALKALINE PHOSPHATASE 63 U/L (40-136); CREATININE SERUM 0.81 MG/DL (0.60-1.30); GFR ESTIMATED 116
[2022-08-14 23:50] LABS: BUN/CREATININE RATIO 22
[2022-08-14 23:52] LABS: ALANINE AMINOTRANSFERASE 19 U/L (0-55)
[2022-08-14 23:56] LABS: LYMPHOCYTES % (MANUAL) 24 %; MONOCYTES % (MANUAL) 4 %; NEUTROPHILS % (MANUAL) 71 %; RBC MORPH NORMAL
[2022-08-15 00:31] VITALS: BP 139/81
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
== END 2022-08-15 00:36 ==
LOC: EDUNIT# 21:20 → ER 21:21
DX: S06.9X1A Unspecified intracranial injury with loss of consciousness of 30 minutes or less, initial encounter (principal); S00.83XA Contusion of other part of head, initial encounter; S00.432A Contusion of left ear, initial encounter; M54.2 Cervicalgia; R07.89 Other chest pain; F17.210 Nicotine dependence, cigarettes, uncomplicated; Z28.310 Unvaccinated for COVID-19; Y04.0XXA Assault by unarmed brawl or fight, initial encounter; Y92.149 Unspecified place in prison as the place of occurrence of the external cause
CPT/HCPCS: 70450; 70486; 71045; 71260; 72125; 72128; 72131; 74177; 80053; 80306; 81000; 85007; 85027; 93041; 99284; G0480; 36415; 80320